=== PATIENT | female | born 1980 | race Two or more races ===

== ENCOUNTER 2021-04-04 06:15 | Emergency (ER) | payer OTHER ==
[~2021-04-04] VITALS: Ht 170.2 cm; Wt 62.6 kg
--- NOTE | 2021-04-04 06:30 | NUR ---
BIBS C/O SKIN RASH ON RIGHT THIGH, BACK AND LEFT HIP. PATIENT STATES IT "LANDRY" THEN LEAVES A PURPLE LEIGH. PATIENT ALERT AND ORIENTED X3. AMBULATORY WITH NON LABORED BREATHING.
--- NOTE | 2021-04-04 08:00 | NUR ---
THE PATIENT IS RECEIVED IN ER BED #14. THE PATIENT IS ALERT AND ORIENTED X4. DENIES PAIN. IN ROOM AIR AND DENIES SOB. RESPIRATION REGULAR AND UNLABORED. WILL CONTINUE TO MONITOR THE PATIENT.
[2021-04-04 08:40] LABS: BASOPHILS # (AUTO) 0.1 K/uL (0.0-0.2); HEMATOCRIT 42 % (33-45); HEMOGLOBIN 14.4 g/dL (11.5-14.8); LYMPHOCYTES # (AUTO) 2.2 K/uL (0.8-4.8); MEAN CORPUSCULAR HGB CONC 34 g/dl (31.0-36.0); MEAN CORPUSCULAR VOLUME 90 fL (82-100); MONOCYTES # (AUTO) 0.8 K/uL (0.1-1.30); MONOCYTES % (AUTO) 15.1 % (2.0-12.0); NEUTROPHILS % (AUTO) 38.9 % (43.0-81.0); PLATELET COUNT (AUTO) 208 K/uL (150-450); RED BLOOD CELL COUNT(AUTO) 4.68 MIL/uL (4.0-5.2); WHITE BLOOD COUNT (AUTO) 5.2 K/uL (4.3-11.0)
[2021-04-04 09:13] LABS: CALCIUM, SERUM 8.2 mg/dL (8.5-10.1); CREATININE 0.7 mg/dL (0.6-1.3); POTASSIUM 3.9 mmol/L (3.5-5.1)
[2021-04-04 09:19] LABS: ALBUMIN 3.4 g/dL (3.4-5.0); BILIRUBIN,DIRECT 0.2 mg/dL (0.0-0.2); BILIRUBIN,TOTAL 0.5 mg/dL (0.2-1.0); TOTAL PROTEIN, SERUM 6.4 g/dL (6.4-8.2)
[2021-04-04 09:23] LABS: EOSINOPHILS % (MANUAL) 2 % (0-4); LYMPHOCYTES % (MANUAL) 39 % (16-48); MONOCYTES % (MANUAL) 2 % (0-11.0); NEUTROPHILS % (MANUAL) 47 (42-76)
--- NOTE | 2021-04-04 09:45 | NUR ---
Patient discharged to home in stable condition. Written and verbal after care instructions given. Patient verbalizes understanding of instruction.
[2021-04-04 09:46] VITALS: BP 128/74
== END 2021-04-04 09:46 | disposition home or self-care (01) ==
LOC: ER 06:16
DX: R21 Rash and other nonspecific skin eruption (principal); Z88.5 Allergy status to narcotic agent; Z88.0 Allergy status to penicillin
CPT/HCPCS: 36415; 80048-TC; 80076-TC; 85025-TC

== ENCOUNTER 2021-05-01 05:49 | Emergency (ER) | payer OTHER ==
[~2021-05-01] VITALS: Ht 170.2 cm; Wt 64.0 kg
--- NOTE | 2021-05-01 06:09 | NUR ---
PATIENT BIBS IN NEED OF A STD TEST. PATIENT ALERT AND ORIENTED X3. AMBULATORY WITH NON LABORED BREAHTING. PLACED IN BED 19.
--- NOTE | 2021-05-01 06:10 | NUR ---
URINE COLLECTED AND SENT TO LAB
--- NOTE | 2021-05-01 06:24 | NUR ---
PT SEEN BY DR. RUDOLPH JOHNSON
[2021-05-01] MEDS ORDERED: CLIN300C12 PO (07:01)
[2021-05-01] MEDS ORDERED: TRIA15OI2 TP (07:01)
--- NOTE | 2021-05-01 07:14 | NUR ---
Jimmy costa in ED - 05/01/21 at 0723 by CHRIS Patient discharged in stable condition. RX Written and verbal after care instructions given. Patient verbalizes understanding of instruction.
--- NOTE | 2021-05-01 09:40 | NUR ---
Patient discharged to home in stable condition. Written and verbal after care instructions given. Patient verbalizes understanding of instruction.
[2021-05-01 10:22] VITALS: BP 126/70
--- NOTE | 2021-05-01 11:03 | NUR ---
SW spoke with pt. regarding [facility] resources. Pt. stated that she is not homeless and resides at [address] [place] [address] for about a year. Pt. stated that she feels safe there. SW provided additional homeless resources, pt. accepted.
== END 2021-05-01 10:23 | disposition home or self-care (01) ==
LOC: ER 05:51
DX: R21 Rash and other nonspecific skin eruption (principal); L30.8 Other specified dermatitis; A64 Unspecified sexually transmitted disease; Z88.0 Allergy status to penicillin; Z88.5 Allergy status to narcotic agent; Z59.00 Homelessness unspecified
CPT/HCPCS: 36415; 86592

== ENCOUNTER 2021-05-09 07:10 | Emergency (ER) | payer OTHER ==
[~2021-05-09] VITALS: Ht 170.2 cm; Wt 56.7 kg
[~2021-05-09 07:10] MED LIST: CLIN300C12 PO; TRIA15OI2 TP
[2021-05-09 07:25] VITALS: BP 135/70
[2021-05-09] MEDS ORDERED: KETO5DRO83 EACHEYE (07:33)
[2021-05-09] MEDS ORDERED: CIPR2.5D14 EACHEYE (07:33)
== END 2021-05-09 07:39 | disposition home or self-care (01) ==
LOC: ER 07:11
DX: H57.13 Ocular pain, bilateral (principal); Z88.0 Allergy status to penicillin; Z88.5 Allergy status to narcotic agent; Z59.00 Homelessness unspecified; Z79.899 Other long term (current) drug therapy

== ENCOUNTER 2021-05-16 08:05 | Emergency (ER) | payer OTHER ==
[~2021-05-16] VITALS: Ht 170.2 cm; Wt 56.7 kg
[~2021-05-16 08:05] MED LIST changes: +CIPR2.5D14 EACHEYE; +KETO5DRO83 EACHEYE
[2021-05-16 08:18] VITALS: BP 127/84
--- NOTE | 2021-05-16 08:25 | NUR ---
pt decided not to be seen. triaged not seen by ed provider.
== END 2021-05-16 08:27 | disposition home or self-care (01) ==
LOC: ER 08:12
DX: Z53.21 Procedure and treatment not carried out due to patient leaving prior to being seen by health care provider (principal); Z76.0 Encounter for issue of repeat prescription

== ENCOUNTER 2021-06-26 00:35 | Emergency (ER) | payer OTHER ==
--- NOTE | 2021-06-26 01:12 | NUR ---
CALLED FOR TRIAGE NOT IN WATING ROOM.
--- NOTE | 2021-06-26 01:35 | NUR ---
PATIENT CALLED FOR TRIAGE, NO ANSWER.
--- NOTE | 2021-06-26 02:00 | NUR ---
called once again. not in waiting room.
== END 2021-06-26 02:02 | disposition left against medical advice (07) ==
LOC: ER 00:38
DX: Z53.21 Procedure and treatment not carried out due to patient leaving prior to being seen by health care provider (principal)

== ENCOUNTER 2021-07-04 02:57 | Emergency (ER) | payer OTHER ==
[~2021-07-04] VITALS: Ht 170.2 cm; Wt 60.8 kg
[2021-07-04 04:06] VITALS: BP 127/68
== END 2021-07-04 04:08 | disposition home or self-care (01) ==
LOC: ER 03:01
DX: Z00.00 Encounter for general adult medical examination without abnormal findings (principal); Z13.9 Encounter for screening, unspecified; Z88.5 Allergy status to narcotic agent; Z88.0 Allergy status to penicillin; Z59.00 Homelessness unspecified

== ENCOUNTER 2022-01-12 02:21 | Emergency (ER) | payer OTHER ==
[~2022-01-12] VITALS: Ht 170.2 cm; Wt 74.4 kg
[2022-01-12 03:00] VITALS: BP 113/64
== END 2022-01-12 03:08 | disposition home or self-care (01) ==
LOC: ER 02:24
DX: Z00.00 Encounter for general adult medical examination without abnormal findings (principal); Z88.0 Allergy status to penicillin; Z88.8 Allergy status to other drugs, medicaments and biological substances; Z59.00 Homelessness unspecified; Z79.899 Other long term (current) drug therapy